=== PATIENT | female | born 1990 | race African-American/Black ===

== ENCOUNTER 2023-09-15 00:27 | Emergency (ER) | payer OTHER ==
[~2023-09-15] VITALS: Ht 167.6 cm; Wt 78.0 kg
[2023-09-15 00:33] VITALS: O2SAT 98
[2023-09-15 01:30] VITALS: BP 125/77; PULSE 91; RESP 18; TEMP 98.2
== END 2023-09-15 01:50 | disposition home or self-care (01) ==
LOC: ER 00:40
DX: T17.928A Food in respiratory tract, part unspecified causing other injury, initial encounter (principal); X58.XXXA Exposure to other specified factors, initial encounter; Y93.89 Activity, other specified; Y92.89 Other specified places as the place of occurrence of the external cause; Y99.8 Other external cause status
CPT/HCPCS: 71045; 99283